=== PATIENT | female | born 1940 | race Caucasian/White ===

== ENCOUNTER 2017-01-05 16:14 | Inpatient (IN) | payer MEDICARE, BC ==
[2017-01-05] MEDS: SODIUM CHLORIDE 0.9% 1000ML 1,000 ML IV SCH ×2 (17:20→18:51)
[2017-01-05 17:24] LABS: HEMATOCRIT 13 % (35-47); MEAN CORPUSCULAR HGB CONC 39.5 gm/dl (32.0-36.0)
[2017-01-05 17:42] LABS: MEAN CORPUSCULAR VOLUME 116 fL (81-99)
[2017-01-05 17:47] LABS: ALBUMIN 3.2 gm/dl (3.4-5.0); CALCIUM 7.7 mg/dl (8.5-10.1); THYROID STIMULATING HORMONE 0.602 uIU/ml (0.358-3.740)
[2017-01-05 18:15] LABS: LYMPHOCYTES % (MANUAL) 49 % (10-50)
[2017-01-05 18:16] LABS: BASOPHILS % (MANUAL) 0 % (0-3); EOSINOPHILS % (MANUAL) 0 % (0-9)
[2017-01-05 18:17] LABS: ANISOCYTOSIS MOD AMT; OVALOCYTES PRESENT
[2017-01-05 18:24] LABS: APPEARANCE,URINE Slightly Cloudy; BILIRUBIN,URINE NEGATIVE (NEGATIVE); COLOR,URINE Yellow; GLUCOSE, URINE (UA) NEGATIVE (NEGATIVE); KETONES,URINE NEGATIVE (NEGATIVE); LEUKOCYTE ESTERASE ,URINE 1+ (NEGATIVE); NITRATE,URINE POSITIVE (NEGATIVE); OCCULT BLOOD,URINE 2+ (NEG-TRACE); PH,URINE 5.5
[2017-01-05 19:54] LABS: ABO B; ANTIBODY SCREEN Negative; RH TYPE Positive; UNIT TYPE O POSITIVE
[2017-01-05 19:55] LABS: UNIT TYPE O POSITIVE
[2017-01-05] MEDS ORDERED: POTASSIUM CHLORIDE 10 MEQ TER ONE (20:47)
[2017-01-05] MEDS ORDERED: POTASSIUM CHLORIDE 10 MEQ CAPSULE PO SCH (21:00)
[2017-01-05] MEDS ORDERED: FUROSEMIDE 20mg SOL IV SCH (23:00)
[2017-01-06 07:17] LABS: HEMATOCRIT 17 % (35-47); MEAN CORPUSCULAR HGB CONC 39.3 gm/dl (32.0-36.0)
[2017-01-06 07:29] LABS: MEAN CORPUSCULAR VOLUME 102 fL (81-99)
[2017-01-06 07:36] LABS: POTASSIUM 3.1 mMol/L (3.5-5.1)
[2017-01-06 08:04] LABS: BASOPHILS % (MANUAL) 0 % (0-3); EOSINOPHILS % (MANUAL) 2 % (0-9); LYMPHOCYTES % (MANUAL) 38 % (10-50)
[2017-01-06 08:05] LABS: ANISOCYTOSIS MOD AMT; OVALOCYTES PRESENT; TARGET CELLS PRESENT
[2017-01-06] MEDS ORDERED: POTASSIUM CHLORIDE 10 MEQ TER ONE ×2 (08:34)
[2017-01-06] MEDS: POTASSIUM CHLORIDE 10 MEQ TER PO SCH ×3 (08:39→21:11)
[2017-01-06] MEDS: ATENOLOL 25 MG TAB PO SCH (08:40)
[2017-01-06] MEDS: CHOLECALCIFEROL 1,000 IU TAB PO SCH (08:40)
[2017-01-06] MEDS: AMLODIPINE 5 MG TAB PO SCH (08:40)
[2017-01-06] MEDS: BIMATOPROST 2.5 ML SOL OP SCH (08:45)
[2017-01-06] MEDS ORDERED: ONDANSETRON HCL 4 MG/2 ML SOL IV PRN (08:56)
[2017-01-06] MEDS ORDERED: ONDANSETRON HCL 4 MG/2 ML SOL ONE (08:57)
[2017-01-06] MEDS ORDERED: SODIUM CHLORIDE 0.9% FLUSH 10 ML SOL IV ONE (09:12)
[2017-01-06] MEDS ORDERED: SODIUM CHLORIDE 0.9% FLUSH 10 ML SOL IV PRN (12:35)
[2017-01-06] MEDS ORDERED: SODIUM CHLORIDE 0.9% 500 ML 500 ML IV SCH (12:45)
[2017-01-06] MEDS: LEVOTHYROXINE SODIUM 112 MCG TAB PO SCH (14:09)
[2017-01-06] MEDS: VITAMIN E PO SCH (14:10)
[2017-01-06] MEDS ORDERED: FUROSEMIDE 20mg SOL IV ONE (15:00)
[2017-01-07] MEDS: LEVOTHYROXINE SODIUM 112 MCG TAB PO SCH (06:21)
[2017-01-07 07:34] LABS: BASOPHILS % (AUTO) 1 % (0-3); EOSINOPHILS % (AUTO) 3 % (0-9); HEMATOCRIT 21 % (35-47); MEAN CORPUSCULAR HGB CONC 37.8 gm/dl (32.0-36.0); MONOCYTES % (AUTO) 1.8 % (0-12); NEUTROPHILS % (AUTO) 35.2 % (37-80)
[2017-01-07 07:53] LABS: MEAN CORPUSCULAR VOLUME 99 fL (81-99)
[2017-01-07 07:55] LABS: ANISOCYTOSIS SLIGHT AMT; OVALOCYTES PRESENT; TEAR DROP CELLS PRESENT
[2017-01-07] MEDS: POTASSIUM CHLORIDE 10 MEQ TER PO SCH ×3 (09:18→23:52)
[2017-01-07] MEDS: BIMATOPROST 2.5 ML SOL OP SCH (09:20)
[2017-01-07] MEDS: ATENOLOL 25 MG TAB PO SCH (09:22)
[2017-01-07] MEDS: AMLODIPINE 5 MG TAB PO SCH (09:22)
[2017-01-07] MEDS: CHOLECALCIFEROL 1,000 IU TAB PO SCH (09:23)
[2017-01-07] MEDS: VITAMIN E PO SCH (09:23)
[2017-01-07] MEDS: SODIUM CHLORIDE 0.9% FLUSH 10 ML SOL IV SCH ×2 (13:58→23:53)
[2017-01-07] MEDS: AMOXICILLIN 125/5 ML BOTTLE PO SCH ×2 (16:05→23:52)
[2017-01-07] MEDS ORDERED: PEG ELECTROLYTE LAVAGE SOLUT 4000 ML PDS PO SCH (17:00)
[2017-01-07] MEDS ORDERED: MAGNESIUM CITRATE SOL PO ONE (20:00)
[2017-01-08] MEDS ORDERED: FLEET ENEMA PR PRN ×2 (06:00→07:26)
[2017-01-08] MEDS: SODIUM CHLORIDE 0.9% FLUSH 10 ML SOL IV SCH (06:30)
[2017-01-08] MEDS: LEVOTHYROXINE SODIUM 112 MCG TAB PO SCH (07:04)
[2017-01-08] MEDS ORDERED: PROPOFOL 500 MG/50 ML EMU IV ONE (07:40)
[2017-01-08] MEDS ORDERED: LIDOCAINE HCL 1% MPF SOL ONE (07:40)
[2017-01-08] MEDS ORDERED: LACTATED RINGERS 1,000 ML IV SCH (08:00)
[2017-01-08 09:20] VITALS: TEMP 97.8
[2017-01-08 09:26] VITALS: RESP 16
[2017-01-08 09:34] VITALS: PULSE 66
[2017-01-08 11:15] VITALS: BP 123/70; O2SAT 97
[2017-01-08] MEDS: POTASSIUM CHLORIDE 10 MEQ TER PO SCH (12:47)
[2017-01-08] MEDS: AMOXICILLIN 125/5 ML BOTTLE PO SCH (12:50)
[2017-01-08] MEDS: AMLODIPINE 5 MG TAB PO SCH (12:50)
[2017-01-08] MEDS: BIMATOPROST 2.5 ML SOL OP SCH (12:52)
[2017-01-08] MEDS: ATENOLOL 25 MG TAB PO SCH (12:53)
[2017-01-08] MEDS: CHOLECALCIFEROL 1,000 IU TAB PO SCH (12:54)
[2017-01-08] MEDS: VITAMIN E PO SCH (12:57)
[2017-01-09] MEDS ORDERED: CYANOCOBALAMIN 1000 MCG/ML SOL IM SCH (09:00)
== END 2017-01-08 15:25 | disposition home or self-care (01) | DRG 812 ==
LOC: ED 16:14 → UNDOADMIN 18:47 → ACUTE CARE 18:47
PROVIDERS: ADMIT Emergency Medicine; ATTEND Emergency Medicine
PROC: 30233N1 Transfusion of Nonautologous Red Blood Cells into Peripheral Vein, Percutaneous Approach (ICD-10-PCS; principal; 2017-01-05)
PROC: 30233N1 Transfusion of Nonautologous Red Blood Cells into Peripheral Vein, Percutaneous Approach (ICD-10-PCS; 2017-01-06)
PROC: 0DJ08ZZ Inspection of Upper Intestinal Tract, Via Natural or Artificial Opening Endoscopic (ICD-10-PCS; 2017-01-06)
PROC: 0DJD8ZZ Inspection of Lower Intestinal Tract, Via Natural or Artificial Opening Endoscopic (ICD-10-PCS; 2017-01-08)
DX: D64.9 Anemia, unspecified (principal); D50.0 Iron deficiency anemia secondary to blood loss (chronic); E53.8 Deficiency of other specified B group vitamins; K44.9 Diaphragmatic hernia without obstruction or gangrene; K57.30 Diverticulosis of large intestine without perforation or abscess without bleeding; R53.83 Other fatigue; E03.9 Hypothyroidism, unspecified
CPT/HCPCS: 36415; 74178; 80053; 81001; 84132; 84443; 85007; 85018; 85025; 85027; 86850; 86900; 86901; 86920; 87077; 87088; 87186; 93005; 93012; 96365; 96366; 99070; 99222; 99284; J1940; J2405; J3420; P9016; Q9967; A6232; J2001; J2704

== ENCOUNTER 2017-11-21 10:34 | Inpatient (IN) | payer MEDICARE, BC ==
[2017-11-21] MEDS ORDERED: SODIUM CHLORIDE 0.9% 1000ML 1,000 ML IV ONE (10:42)
[2017-11-21] MEDS: HYDROMORPHONE HCL 2 MG/ML SOL IV PRN ×2 (11:18→14:46)
[2017-11-21] MEDS: SODIUM CHLORIDE 0.9% FLUSH 10 ML SOL IV PRN ×2 (11:19→11:21)
[2017-11-21] MEDS: SODIUM CHLORIDE 0.9% 1000ML 1,000 ML IV SCH (14:47)
[2017-11-21] MEDS: AMLODIPINE 5 MG TAB PO SCH (16:10)
[2017-11-21] MEDS: ATENOLOL 25 MG TAB PO SCH (16:11)
[2017-11-21] MEDS: APAP/HYDROCODONE 325/5 TAB PO PRN (18:51)
[2017-11-22] MEDS: SODIUM CHLORIDE 0.9% 1000ML 1,000 ML IV SCH ×3 (00:45→20:39)
[2017-11-22] MEDS: APAP/HYDROCODONE 325/5 TAB PO PRN ×2 (01:59→06:45)
[2017-11-22] MEDS: LEVOTHYROXINE SODIUM 112 MCG TAB PO SCH (06:45)
[2017-11-22 07:17] LABS: BASOPHILS % (AUTO) 1 % (0-3); EOSINOPHILS % (AUTO) 0 % (0-9); HEMATOCRIT 41 % (35-47); MEAN CORPUSCULAR HGB CONC 33.8 gm/dl (32.0-36.0); MEAN CORPUSCULAR VOLUME 93 fL (81-99); MONOCYTES % (AUTO) 7.1 % (0-12); NEUTROPHILS % (AUTO) 80.5 % (37-80)
[2017-11-22 07:35] LABS: CALCIUM 8.4 mg/dl (8.5-10.1); POTASSIUM 3.3 mMol/L (3.5-5.1)
[2017-11-22] MEDS ORDERED: ONDANSETRON HCL 4 MG TAB PO PRN (07:46)
[2017-11-22] MEDS: OXYCODONE HYDROCHLORIDE 5 MG TAB PO PRN ×2 (08:41→23:58)
[2017-11-22] MEDS: POTASSIUM CHLORIDE 10 MEQ TER PO SCH (08:42)
[2017-11-22] MEDS: BIMATOPROST 2.5 ML SOL OP SCH (08:42)
[2017-11-22] MEDS: ATENOLOL 25 MG TAB PO SCH (08:43)
[2017-11-22] MEDS: AMLODIPINE 5 MG TAB PO SCH (08:43)
[2017-11-22] MEDS: APAP/OXYCODONE 325/5 TAB PO PRN ×2 (13:36→20:39)
[2017-11-22 16:18] VITALS: O2SAT 93
[2017-11-23] MEDS: LEVOTHYROXINE SODIUM 112 MCG TAB PO SCH (06:49)
[2017-11-23] MEDS: APAP/OXYCODONE 325/5 TAB PO PRN ×3 (06:52→17:34)
[2017-11-23 08:32] LABS: CALCIUM 8.1 mg/dl (8.5-10.1); POTASSIUM 3.6 mMol/L (3.5-5.1)
[2017-11-23 08:36] LABS: BASOPHILS % (AUTO) 1 % (0-3); EOSINOPHILS % (AUTO) 1 % (0-9); HEMATOCRIT 39 % (35-47); MEAN CORPUSCULAR HGB CONC 33.9 gm/dl (32.0-36.0); MEAN CORPUSCULAR VOLUME 93 fL (81-99); MONOCYTES % (AUTO) 9.6 % (0-12); NEUTROPHILS % (AUTO) 63.6 % (37-80)
[2017-11-23 08:39] VITALS: RESP 16
[2017-11-23] MEDS: BIMATOPROST 2.5 ML SOL OP SCH ×2 (09:09→09:13)
[2017-11-23] MEDS: POTASSIUM CHLORIDE 10 MEQ TER PO SCH (09:09)
[2017-11-23] MEDS: AMLODIPINE 5 MG TAB PO SCH (09:09)
[2017-11-23] MEDS: ATENOLOL 25 MG TAB PO SCH (09:10)
[2017-11-23] MEDS: SODIUM CHLORIDE 0.9% 1000ML 1,000 ML IV SCH (10:02)
[2017-11-23] MEDS: OXYCODONE HYDROCHLORIDE 5 MG TAB PO PRN (14:24)
[2017-11-23] MEDS ORDERED: PNEUMOC 13-VAL CONJ-DIP CRM/PF 0.5 ML SYRINGE IM ONE (16:12)
[2017-11-23 16:31] VITALS: BP 167/77; PULSE 60; TEMP 98
== END 2017-11-23 19:15 | disposition home or self-care (01) | DRG 552 ==
LOC: ACUTE CARE 10:34
PROVIDERS: ADMIT Family Medicine; ATTEND Family Medicine
DX: S32.010A Wedge compression fracture of first lumbar vertebra, initial encounter for closed fracture (principal); E03.9 Hypothyroidism, unspecified; I10 Essential (primary) hypertension; K80.20 Calculus of gallbladder without cholecystitis without obstruction; W19.XXXA Unspecified fall, initial encounter; N89.9 Noninflammatory disorder of vagina, unspecified; E87.6 Hypokalemia
CPT/HCPCS: 36415; 72148; 74176; 80048; 80053; 82150; 85025; 90670; J1170; A9270-GY; G0008